=== PATIENT | female | born 1985 | race Two or more races ===

== ENCOUNTER → 2017-08-30 | Outpatient (REF) ==
[2017-09-01 08:06] LABS: HERPES ZOSTER, VARICELLA IgG 626 index (Immune >165)
[2017-09-01 08:06] LABS: RUBEOLA IgG ANTIBODY >300.0 AU/mL (Immune >29.9)
[2017-09-01 10:11] LABS: RUBELLA IgG QUALITATIVE IMMUNE (IMMUNE)
[2017-09-01 14:15] LABS: QUANTIFERON GOLD TB Negative (Negative); TB Test (QFT) Antigen 0.03 IU/mL (.); TB Test (QFT) Mitogen >10.00 IU/mL (.); TB Test (QFT) Nil 0.03 IU/mL (.)
== END ==
LOC: M LAB 16:22
DX: Z00.00 Encounter for general adult medical examination without abnormal findings (principal)